=== PATIENT | male | born 1985 | race Caucasian/White ===

== ENCOUNTER 2019-03-18 18:37 | Emergency (ER) | payer MEDICAID, OTHER ==
[~2019-03-18] VITALS: Ht 162.6 cm; Wt 67.4 kg
[2019-03-18 18:52] VITALS: BP 143/85; PULSE 80; RESP 17; Ht 162.6 cm; Wt 67.4 kg
[2019-03-18] MEDS ORDERED: LIDOCAINE/MYLANTA 40 ML BTL PO ONE (22:00)
[2019-03-18] MEDS ORDERED: ACET-141 PO (23:16)
[2019-03-18] MEDS ORDERED: IBUP-1561 PO (23:16)
--- NOTE | 2019-03-18 23:18 | ERD ---
ER Documentation Chief Complaint Chief Complaint RLQ AP x3 weeks. no n/v/d/fever/urinary symptoms HPI 33-year-old male presents for abdominal pain x3 weeks. The pain is located in the right lower quadrant. He states that he has about 5 out of 10 pain that is constant. He describes the pain as sharp. There is no radiation. He denies dysuria. He is having normal bowel movements. Denies vomiting or diarrhea. Denies fevers. States the cough makes the pain little bit worse. He does have a history of diabetes. No significant surgeries in the past. No other modifying factors noted. No other treatment tried at home. ROS All systems reviewed and are negative except as per history of present illness. Medications Home Meds Active Scripts Magaldrate/Simethicone* (Mag-Al Plus Suspension*) 30 Ml Oral.susp, 30 ML PO Q6H PRN for GASTROINTESTINAL UPSET, #1 BOTTLE Prov:LUIS CARLOS ALMARAZ DO 03/18/19 Ibuprofen* (Motrin*) 400 Mg Tab, 400 MG PO Q6H PRN for PAIN AND OR ELEVATED TEMP, #30 TAB Prov:LUIS CARLOS ALMARAZ DO 03/18/19 Acetaminophen* (Acetaminophen*) 500 MG Extra Strength Tablet, 500 MG PO Q4H PRN for PAIN AND OR ELEVATED TEMP, #30 TAB Prov:LUIS CARLOS ALMARAZ DO 03/18/19 Allergies Allergies: Coded Allergies: No Known Allergy (Unverified , 03/18/19) PMhx/Soc Medical and Surgical Hx: pt denies Medical Hx, pt denies Surgical Hx Hx Alcohol Use: No Hx Substance Use: No Hx Tobacco Use: No Smoking Status: Never smoker FmHx Family History: No coronary disease Physical Exam Vitals Vital Signs Date Temp Pulse Resp B/P (MAP) Pulse Ox O2 O2 Flow FiO2 Time Delivery Rate 03/18/19 97.2 80 17 143/85 99 18:52 (104) Physical Exam Const: No acute distress Resp: Clear to auscultation bilaterally Cardio: Regular rate and rhythm, no murmurs Abd: Soft, non distended. Normal bowel sounds, mild right lower quadrant tenderness palpation, no Narvaez sign, no rebound or guarding noted Skin: No petechiae or rashes Back: No midline or flank tenderness Ext: No cyanosis, or edema Neur: Awake and alert Psych: Normal Mood and Affect Result Diagram: 03/18/196 03/18/196 Results 24 hrs Laboratory Tests Test 03/18/19 22:16 White Blood Count 7.1 10^3/ul Red Blood Count 4.87 10^6/ul Hemoglobin 14.2 g/dl Hematocrit 41.0 % Mean Corpuscular Volume 84.2 fl Mean Corpuscular Hemoglobin 29.2 pg Mean Corpuscular Hemoglobin Concent 34.6 g/dl Red Cell Distribution Width 12.4 % Platelet Count 268 10^3/UL Mean Platelet Volume 10.2 fl Immature Granulocytes % 0.100 % Neutrophils % 47.2 % Lymphocytes % 40.8 % Monocytes % 9.9 % Eosinophils % 1.4 % Basophils % 0.6 % Nucleated Red Blood Cells % 0.0 /100WBC Immature Granulocytes # 0.010 10^3/ul Neutrophils # 3.4 10^3/ul Lymphocytes # 2.9 10^3/ul Monocytes # 0.7 10^3/ul Eosinophils # 0.1 10^3/ul Basophils # 0.0 10^3/ul Nucleated Red Blood Cells # 0.0 10^3/ul Urine Color YELLOW Urine Clarity CLEAR Urine pH 6.0 Urine Specific [place] 1.019 Urine Ketones NEGATIVE mg/dL Urine Nitrite NEGATIVE mg/dL Urine Bilirubin NEGATIVE mg/dL Urine Urobilinogen NEGATIVE mg/dL Urine Leukocyte Esterase NEGATIVE Stanley/ul Urine Hemoglobin NEGATIVE mg/dL Urine Glucose 1+ mg/dL Urine Total Protein NEGATIVE mg/dl Sodium Level 143 mmol/L Potassium Level 3.8 mmol/L Chloride Level 103 mmol/L Carbon Dioxide Level 27 mmol/L Anion Gap 13 Blood Urea Nitrogen 17 mg/dl Creatinine 0.76 mg/dl Est Glomerular Filtrat Rate mL/min > 60 mL/min Glucose Level 176 mg/dl Calcium Level 9.8 mg/dl Total Bilirubin 0.4 mg/dl Direct Bilirubin 0.00 mg/dl Indirect Bilirubin 0.4 mg/dl Aspartate Amino Transf (AST/SGOT) 30 IU/L Alanine Aminotransferase (ALT/SGPT) 61 IU/L Alkaline Phosphatase 99 IU/L Total Protein 8.1 g/dl Albumin 4.9 g/dl Globulin 3.20 g/dl Albumin/Globulin Ratio 1.53 Lipase 128 U/L Current Medications Medications Dose Sig/Ginger Start Time Status Last (Trade) Ordered Route PRN Stop Time Admin Dose Reason Admin 40 ml ONCE ONCE 03/18/19 DC 03/18/19 Miscellaneous PO 22:00 03/18/19 22:20 Medication 22:01 (Gi Cocktail (2)) Procedures/MDM Medical Decision Making: Differential diagnosis includes but not limited to acute gastritis, acute gastroenteritis, appendicitis, cholecystitis, pancreatitis, nephrolithiasis Patient appeared well on physical exam. Nontoxic appearing. ED course: Patient was given GI cocktail. Symptoms improved with treatment. Labs: CBC showed no severe anemia, no elevated WBC to suggest infection CMP showed no electrolyte abnormalities, there was normal kidney and liver function Lipase was normal UA was negative for infection Given mild abdominal exam and normal lab values, there is low suspicion for acute abdomen at this point. Prescription(s): Patient given prescription for supportive medications . Patient advised to follow up with PCP in 1-2 days. Patient advised to return to ED for new or worsening symptoms. Patient stable on discharge from the ED. Disclaimer: Inadvertent spelling and grammatical errors are likely due to EHR/dictation software use and do not reflect on the overall quality of patient care. Also, please note that the electronic time recorded on this note does not necessarily reflect the actual time of the patient encounter. Departure Diagnosis: Primary Impression: Abdominal pain Abdominal location: right lower quadrant Qualified Codes: R10.31 - Right lower quadrant pain Condition: Fair Patient Instructions: Abdominal Pain Referrals: [facility] YOU HAVE RECEIVED A MEDICAL SCREENING EXAM AND THE RESULTS INDICATE THAT YOU DO NOT HAVE A CONDITION THAT REQUIRES URGENT TREATMENT IN THE EMERGENCY DEPARTMENT. FURTHER EVALUATION AND TREATMENT OF YOUR CONDITION CAN WAIT UNTIL YOU ARE SEEN IN YOUR DOCTORS OFFICE WITHIN THE NEXT 1-2 DAYS. IT IS YOUR RESPONSIBILITY TO MAKE AN APPOINTMENT FOR FOLOW-UP CARE. IF YOU HAVE A PRIMARY DOCTOR --you should call your primary doctor and schedule an appointment IF YOU DO NOT HAVE A PRIMARY DOCTOR YOU CAN CALL OUR PHYSICIAN REFERRAL HOTLINE AT IF YOU CAN NOT AFFORD TO SEE A PHYSICIAN YOU CAN CHOSE FROM THE FOLLOWING [facility] [address] [facility] [address] [facility] [facility] [address] [facility] [address] [facility]. [facility] [address] [facility]. [facility] [address] Additional Instructions: Call your primary care doctor TOMORROW for an appointment during the next 1-2 days.See the doctor sooner or return here if your condition worsens before your appointment time. LUIS CARLOS ALMARAZ DO March 18, 2019 23:18
[2019-03-18] MEDS ORDERED: UDMYL PO (23:19)
== END 2019-03-18 23:31 | disposition home or self-care (01) ==
LOC: FTE 18:37
DX: R10.31 Right lower quadrant pain (principal); E11.9 Type 2 diabetes mellitus without complications
CPT/HCPCS: 36415; 80053; 81003; 83690; 85025; Z7502; Z7610; 99283

== ENCOUNTER 2019-03-23 08:56 | Emergency (ER) | payer MEDICAID ==
[~2019-03-23] VITALS: Wt 72.0 kg
[~2019-03-23 08:56] MED LIST: ACET-141 PO; IBUP-1561 PO; UDMYL PO
[2019-03-23 08:58] VITALS: BP 143/65; PULSE 86; RESP 18
[2019-03-23] MEDS ORDERED: ACET325T33 PO (10:43)
[2019-03-23] MEDS ORDERED: FAMO-96 PO (10:43)
--- NOTE | 2019-03-23 13:40 | ERD ---
ER Documentation Chief Complaint Chief Complaint RUQ PAIN X 3 WEEKS, FOOD DOES NOT CHANGE PAIN HPI 33-year-old male presenting with epigastric pain. He states the pain is constant. He states it hurts when he walks. He denies any chest pain or shortness of breath. He took Tylenol today with no alleviation of symptoms. Denies fevers. Medical history is diabetes insulin-dependent. NKDA. Surgical history denies. Social history denies ROS All systems reviewed and are negative except as per history of present illness. Medications Home Meds Active Scripts Acetaminophen* (Tylenol*) 325 Mg Tablet, 2 TAB PO Q6 PRN for PAIN AND OR ELEVATED TEMP, #20 TAB Prov:MEÑO ROSARIO PA-C 03/23/19 Famotidine* (Pepcid*) 20 Mg Tablet, 20 MG PO BID for 4 Days, #30 TAB Prov:MEÑO ROSARIO PA-C 03/23/19 Magaldrate/Simethicone* (Mag-Al Plus Suspension*) 30 Ml Oral.susp, 30 ML PO Q6H PRN for GASTROINTESTINAL UPSET, #1 BOTTLE Prov:LUIS CARLOS ALMARAZ DO 03/18/19 Ibuprofen* (Motrin*) 400 Mg Tab, 400 MG PO Q6H PRN for PAIN AND OR ELEVATED TEMP, #30 TAB Prov:LUIS CARLOS ALMARAZ DO 03/18/19 Acetaminophen* (Acetaminophen*) 500 MG Extra Strength Tablet, 500 MG PO Q4H PRN for PAIN AND OR ELEVATED TEMP, #30 TAB Prov:LUIS CARLOS ALMARAZ DO 03/18/19 Allergies Allergies: Coded Allergies: No Known Allergy (Unverified , 03/18/19) PMhx/Soc History of Surgery: No Hx Neurological Disorder: No Hx Respiratory Disorders: No Hx Cardiac Disorders: No Hx Psychiatric Problems: No Hx Miscellaneous Medical Probl: No Hx Alcohol Use: No Hx Substance Use: No Hx Tobacco Use: No Smoking Status: Never smoker Physical Exam Vitals Vital Signs Date Temp Pulse Resp B/P (MAP) Pulse Ox O2 O2 Flow FiO2 Time Delivery Rate 03/23/19 97.4 86 18 143/65 99 08:58 (91) Physical Exam Const: No acute distress Head: Atraumatic Eyes: Normal Conjunctiva ENT: Normal External Ears, Nose and Mouth. Neck: Full range of motion. No meningismus. Resp: Clear to auscultation bilaterally Cardio: Regular rate and rhythm, no murmurs Abd: Soft, non tender, non distended. Normal bowel sounds Skin: No petechiae or rashes Back: No midline or flank tenderness Ext: No cyanosis, or edema Neur: Awake and alert Psych: Normal Mood and Affect Result Diagram: 03/23/1952 03/23/19 0951 Results 24 hrs Laboratory Tests Test 03/23/19 09:51 03/23/19 09:52 White Blood Count 7.0 10^3/ul Red Blood Count 5.07 10^6/ul Hemoglobin 14.9 g/dl Hematocrit 42.7 % Mean Corpuscular Volume 84.2 fl Mean Corpuscular Hemoglobin 29.4 pg Mean Corpuscular Hemoglobin Concent 34.9 g/dl Red Cell Distribution Width 12.3 % Platelet Count 266 10^3/UL Mean Platelet Volume 10.0 fl Immature Granulocytes % 0.300 % Neutrophils % 52.1 % Lymphocytes % 33.5 % Monocytes % 9.9 % Eosinophils % 3.9 % Basophils % 0.3 % Nucleated Red Blood Cells % 0.0 /100WBC Immature Granulocytes # 0.020 10^3/ul Neutrophils # 3.6 10^3/ul Lymphocytes # 2.3 10^3/ul Monocytes # 0.7 10^3/ul Eosinophils # 0.3 10^3/ul Basophils # 0.0 10^3/ul Nucleated Red Blood Cells # 0.0 10^3/ul Sodium Level 141 mmol/L Potassium Level 4.2 mmol/L Chloride Level 106 mmol/L Carbon Dioxide Level 24 mmol/L Anion Gap 11 Blood Urea Nitrogen 14 mg/dl Creatinine 0.63 mg/dl Est Glomerular Filtrat Rate mL/min > 60 mL/min Glucose Level 172 mg/dl Calcium Level 9.2 mg/dl Total Bilirubin 0.3 mg/dl Direct Bilirubin 0.00 mg/dl Indirect Bilirubin 0.3 mg/dl Aspartate Amino Transf (AST/SGOT) 32 IU/L Alanine Aminotransferase (ALT/SGPT) 60 IU/L Alkaline Phosphatase 137 IU/L Total Protein 8.4 g/dl Albumin 4.8 g/dl Globulin 3.60 g/dl Albumin/Globulin Ratio 1.33 Lipase 165 U/L Urine Color YELLOW Urine Clarity CLOUDY Urine pH 8.0 Urine Specific [place] 1.015 Urine Ketones NEGATIVE mg/dL Urine Nitrite NEGATIVE mg/dL Urine Bilirubin NEGATIVE mg/dL Urine Urobilinogen NEGATIVE mg/dL Urine Leukocyte Esterase NEGATIVE Stanley/ul Urine Microscopic RBC 1 /HPF Urine Microscopic WBC 3 /HPF Urine Hemoglobin NEGATIVE mg/dL Urine Glucose 3+ mg/dL Urine Total Protein NEGATIVE mg/dl Procedures/MDM DIAGNOSTIC IMAGING REPORT Patient: KASIE VARGAS : 1985 Age: 33 Sex: M MR #: [id number] DOS: 03/23/19 0944 Ordering MD: JOSIE ROSARIO PA-C Location: [facility] Room/Bed: PROCEDURE: US Abdomen (right upper quadrant). CLINICAL INDICATION: Right upper quadrant pain TECHNIQUE: Multiple real-time longitudinal and transverse images of the right upper quadrant of the abdomen were acquired utilizing a curved array transducer. Images were reviewed on a high-resolution PACS workstation. COMPARISON: None FINDINGS: The liver is normal in size and echotexture without focal mass or intrahepatic biliary dilatation. There is normal hepatopedal flow within the main portal vein. The gallbladder is well displayed without filling defects or wall thickening P The common bile duct measures 4.1 mm in maximal dimension. The visualized portions of the pancreas are unremarkable with obscuration of the tail of the pancreas. No free fluid is identified. The right kidney measures 11.3 cm in length. There is normal echogenicity within the right kidney. There is no perinephric fluid collection. No hydronephrosis, mass, or calculus is seen. IMPRESSION: 1. Unremarkable right upper quadrant ultrasound. MDM: 33-year-old male presenting with epigastric pain. Patient's blood work and ultrasound within normal limits. I have low suspicion for acute abdominal emergency. I have low suspicion for cardiac or pulmonary emergency. I have low suspicion for infectious process. Patient likely has gastritis and we discharged with supportive medications. Patient is told if symptoms change or worsen to return immediately to the ER. All questions answered at discharge Departure Diagnosis: Primary Impression: Epigastric pain Condition: Stable Patient Instructions: Epigastric Pain (Uncertain Cause) Referrals: COMMUNITY CLINICS YOU HAVE RECEIVED A MEDICAL SCREENING EXAM AND THE RESULTS INDICATE THAT YOU DO NOT HAVE A CONDITION THAT REQUIRES URGENT TREATMENT IN THE EMERGENCY DEPARTMENT. FURTHER EVALUATION AND TREATMENT OF YOUR CONDITION CAN WAIT UNTIL YOU ARE SEEN IN YOUR DOCTORS OFFICE WITHIN THE NEXT 1-2 DAYS. IT IS YOUR RESPONSIBILITY TO MAKE AN APPOINTMENT FOR FOLOW-UP CARE. IF YOU HAVE A PRIMARY DOCTOR --you should call your primary doctor and schedule an appointment IF YOU DO NOT HAVE A PRIMARY DOCTOR YOU CAN CALL OUR PHYSICIAN REFERRAL HOTLINE AT IF YOU CAN NOT AFFORD TO SEE A PHYSICIAN YOU CAN CHOSE FROM THE FOLLOWING COUNT INCLUDES THE [facility] CLINICS [facility] [address] [facility] [address] [facility]. [facility] [address] [facility] [address] [facility] [address] [facility]. [facility]. [address] Additional Instructions: FOLLOW UP WITH YOUR PRIMARY CARE PHYSICIAN TOMORROW.Return to this facility if you are not improving as expected. MEÑO ROSARIO PA-C March 23, 2019 13:39
== END 2019-03-23 10:53 | disposition home or self-care (01) ==
LOC: FTE 08:56
DX: R10.13 Epigastric pain (principal)
CPT/HCPCS: 36415; 76705; 80053; 81001; 83690; 85025; Z7502

== ENCOUNTER 2019-05-25 07:53 | Emergency (ER) | payer MEDICAID ==
[~2019-05-25] VITALS: Ht 154.9 cm; Wt 78.0 kg
[~2019-05-25 07:53] MED LIST changes: +ACET325T33 PO; +FAMO-96 PO
[2019-05-25 07:55] VITALS: Ht 154.9 cm; Wt 78.0 kg
[2019-05-25] MEDS ORDERED: TETRACAINE 0.5% 4 ML OPH RIGHT EYE ONE (09:00)
[2019-05-25] MEDS ORDERED: FLUORESCEIN STRIP RIGHT EYE ONE (09:00)
--- NOTE | 2019-05-25 09:10 | ERD ---
ER Documentation Chief Complaint Chief Complaint RIGHT EYE PAIN HPI This is a 33-year-old male with a hx of DM presents to ED with complaints of right eye pain since yesterday. 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 Patient denies any blurry vision or changes in vision, trauma to eye or severe eye pain. Wears g lasses but does not wear contact lenses. ROS All systems reviewed and are negative except as per history of present illness. Medications Home Meds Active Scripts Acetaminophen* (Tylenol*) 325 Mg Tablet, 2 TAB PO Q6 PRN for PAIN AND OR ELEVATED TEMP, #20 TAB Prov:MEÑO ROSARIO PA-C 03/23/19 Famotidine* (Pepcid*) 20 Mg Tablet, 20 MG PO BID for 4 Days, #30 TAB Prov:MEÑO ROSARIO PA-C 03/23/19 Magaldrate/Simethicone* (Mag-Al Plus Suspension*) 30 Ml Oral.susp, 30 ML PO Q6H PRN for GASTROINTESTINAL UPSET, #1 BOTTLE Prov:LUIS CARLOS ALMARAZ DO 03/18/19 Ibuprofen* (Motrin*) 400 Mg Tab, 400 MG PO Q6H PRN for PAIN AND OR ELEVATED TEMP, #30 TAB Prov:LUIS CARLOS ALMARAZ DO 03/18/19 Acetaminophen* (Acetaminophen*) 500 MG Extra Strength Tablet, 500 MG PO Q4H PRN for PAIN AND OR ELEVATED TEMP, #30 TAB Prov:LUIS CARLOS ALMARAZ DO 03/18/19 Allergies Allergies: Coded Allergies: No Known Allergy (Unverified , 03/18/19) PMhx/Soc Medical and Surgical Hx: pt denies Surgical Hx History of Surgery: No Hx Neurological Disorder: No Hx Respiratory Disorders: No Hx Cardiac Disorders: No Hx Psychiatric Problems: No Hx Miscellaneous Medical Probl: No Hx Alcohol Use: No Hx Substance Use: No Hx Tobacco Use: No Smoking Status: Never smoker FmHx Family History: No diabetes Physical Exam Vitals Vital Signs Date Temp Pulse Resp B/P (MAP) Pulse Ox O2 O2 Flow FiO2 Time Delivery Rate 05/25/19 98.1 86 18 119/55 99 07:55 (76) Physical Exam Const: No acute distress Head: Atraumatic Eyes: Normal Conjunctiva, PERRLA, EOMs intact bilaterally x6, Eye Exam Visual [place]: Intact in all four quadrants bilaterally Lac ducts/glands: No swelling Lids w/ evertion: Normal, no foreign body Conj/[place]: Clear, negative Fluorescein/Gerhard's ENT: Normal External Ears, Nose and Mouth. Neck: Full range of motion. No meningismus. Resp: No respiratory distress Neur: Awake and alert Psych: Normal Mood and Affect Results 24 hrs Current Medications Medications Dose Sig/Ginger Start Time Status Last (Trade) Ordered Route PRN Stop Time Admin Dose Reason Admin Tetracaine 1 drop ONCE ONCE 05/25/19 DC HCl RIGHT EYE 09:00 (Tetracaine 05/25/19 09:01 0.5% Steri-Unit Shira) Fluorescein 1 strip ONCE ONCE 05/25/19 DC Sodium RIGHT EYE 09:00 (Qtezs-C-Dptu 05/25/19 09:01 p) Procedures/MDM ER COURSE: The patient was stable throughout ED course. I kept the patient and/or family informed of laboratory and diagnostic imaging results throughout the emergency room course. The patient was promptly evaluated and a treatment plan was devised based on H&P and other data. This plan was discussed with the patient who agreed and had no further questions or concerns prior to discharge. MEDICAL DECISION MAKING: This is a 33-year-old male presents ED with complaints of right eye irritation status post getting desonide at work yesterday. I performed a fluorescein stain on patient and there is no uptake. There is no evidence of foreign body or corneal abrasion. This is likely an irritation. Patient was advised to use [id number] lubricating eyedrops and follow-up with ophthalmology if no resolution of eye irritation. Visual acuity is normal. Suspicion for orbital cellulitis is low. Patient does not have any eye pain or painful extraocular movements and there is no surrounding erythema. Patient is afebrile and extremely well-appearing. No evidence of globe perforation or other ophthalmic emergencies. Pt will be sent home with abx, pt is to follow-up with her primary care doctor within 1-2 days. return to ER sooner if symptoms worsen. My medical decision making shared with the patient she understands and agrees with plan. DISPOSITION PLAN: We discussed follow up with the patient's primary care doctor within 24 to 48 hours. Patient counseled regarding my diagnostic impression and care plan. Prior to discharge all questions answered. Pt agrees with treatment plan and understands strict return precautions. Precautionary instructions provided including instructions to return to the ER if not improving or for any worsening or changing symptoms or concerns. ExitCare instructions provided. Prior to discharge, patients vital signs have been reviewed SPECIALIST FOLLOW UP RECOMMENDED: None Patient has been advised to follow up with primary care in 1-2 days. Disclaimer: Inadvertent spelling and grammatical errors are likely due to EHR/ dictation software use and do not reflect on the overall quality of patient care. Also, please note that the electronic time recorded on this note does not necessarily reflect the actual time of the patient encounter. Departure Diagnosis: Primary Impression: Irritation of right eye Condition: Stable Patient Instructions: Conjunctivitis Caused by Irritation Referrals: COMM[facility]ITY CLINICS Additional Instructions: Patient advised to return to the ED immediately for new or worsening symptoms. Patient advised to follow up with primary care provider in the next 24-48 hours. Patient verbalized understanding and agrees with treatment plan and course of action. If patient has no primary care they may follow up with one of the community clinics listed on the following page or one of the options listed below [facility] [address] [place] [id number] or [facility] [address] [place] [address] or [facility] [address] [place] [address] MICHAEL MORENO PA-C May 25, 2019 09:10
[2019-05-25 09:22] VITALS: BP 119/61; PULSE 77; RESP 18
== END 2019-05-25 09:24 | disposition home or self-care (01) ==
LOC: FTE 07:53
DX: H57.89 Other specified disorders of eye and adnexa (principal); E11.9 Type 2 diabetes mellitus without complications
CPT/HCPCS: Z7502; Z7610; 99283